=== PATIENT | male | born 1990 | race Caucasian/White ===

== ENCOUNTER 2021-02-21 04:58 | Inpatient (IN) | payer OTHER ==
[2021-02-21] MEDS ORDERED: SODIUM CHLORIDE 0.9% 1,000 ML IV STA (05:05)
[2021-02-21] MEDS ORDERED: MORPHINE SULFATE 4 MG/ML SYRINGE IV STA (05:05)
--- NOTE | 2021-02-21 05:05 | ED ---
Abdominal Pain HPI - General Stated Complaint: Abd Pain Time Seen by Provider: 02/21/21 05:04 - Related Data Allergies Allergy/AdvReac Type Severity Reaction Status Date / Time Penicillins Allergy Unknown Anaphylaxis Verified 02/21/21 06:43 Review of Systems ROS Statement: Those systems with pertinent positive or pertinent negative responses have been documented in the HPI. ROS Other: All systems not noted in ROS Statement are negative. Course Vital Signs 02/21/21 05:06 Temperature 98.6 F Pulse Rate 81 Respiratory 18 Rate Blood Pressure 168/117 O2 Sat by Pulse 99 Oximetry Medical Decision Making - Lab Data Result diagrams: 02/21/21 05:35 02/21/21 05:35 Lab Results 02/21/21 02/21/21 Range/Units 05:35 05:35 WBC 9.9 (3.8-10.6) k/uL RBC 4.42 (4.30-5.90) m/uL Hgb 15.5 (13.0-17.5) gm/dL Hct 45.9 (39.0-53.0) % MCV 103.8 H (80.0-100.0) fL MCH 35.1 H (25.0-35.0) pg MCHC 33.8 (31.0-37.0) g/dL RDW 13.4 (11.5-15.5) % Plt Count 122 L (150-450) k/uL MPV 9.9 Neutrophils % 74 % Lymphocytes % 18 % Monocytes % 4 % Eosinophils % 3 % Basophils % 0 % Neutrophils # 7.3 (1.3-7.7) k/uL Lymphocytes # 1.8 (1.0-4.8) k/uL Monocytes # 0.4 (0-1.0) k/uL Eosinophils # 0.3 (0-0.7) k/uL Basophils # 0.0 (0-0.2) k/uL Macrocytosis Slight Sodium 134 L (137-145) mmol/L Potassium 3.6 (3.5-5.1) mmol/L Chloride 97 L (98-107) mmol/L Carbon Dioxide 28 (22-30) mmol/L Anion Gap 9 mmol/L BUN 10 (9-20) mg/dL Creatinine 0.71 (0.66-1.25) mg/dL Est GFR (CKD-EPI)AfAm >90 (>60 ml/min/1.73 sqM) Est GFR (CKD-EPI)NonAf >90 (>60 ml/min/1.73 sqM) Glucose 82 (74-99) mg/dL Calcium 9.2 (8.4-10.2) mg/dL Phosphorus 3.8 (2.5-4.5) mg/dL Magnesium 1.9 (1.6-2.3) mg/dL Total Bilirubin 0.8 (0.2-1.3) mg/dL AST 33 (17-59) U/L ALT 17 (4-49) U/L Alkaline Phosphatase 74 (38-126) U/L Total Protein 7.4 (6.3-8.2) g/dL Albumin 4.0 (3.5-5.0) g/dL Amylase 210 H (30-110) U/L Lipase 2767 H (23-300) U/L Serum Alcohol <10 mg/dL Disposition Clinical Impression: Pancreatitis, Abdominal pain, Acute pancreatitis, Alcohol dependence Disposition: ADMITTED IP TO THIS HOSP Condition: Fair Is patient prescribed a controlled substance at d/c from ED?: No Referrals: None,Stated [Primary Care Provider] - 1-2 days
[2021-02-21] MEDS ORDERED: LORazepam 2 MG/ML INJ IV STA (05:22)
[2021-02-21 05:52] LABS: Basophils % (A) 0 %; Eosinophils # (A) 0.3 k/uL (0-0.7); Eosinophils % (A) 3 %; HCT 45.9 % (39.0-53.0); HGB 15.5 gm/dL (13.0-17.5); Lymphocytes # (A) 1.8 k/uL (1.0-4.8); Lymphocytes % (A) 18 %; MCH 35.1 pg (25.0-35.0); MCHC 33.8 g/dL (31.0-37.0); MCV 103.8 fL (80.0-100.0); Macrocytosis Slight; Mean Platelet Volume 9.9; Monocytes # (A) 0.4 k/uL (0-1.0); Monocytes % (A) 4 %; Neutrophils # (A) 7.3 k/uL (1.3-7.7); Neutrophils % (A) 74 %; Platelet Count 122 k/uL (150-450); RBC 4.42 m/uL (4.30-5.90); RDW 13.4 % (11.5-15.5); WBC 9.9 k/uL (3.8-10.6)
[2021-02-21 06:03] LABS: ALT 17 U/L (4-49); African American GFR (CKD) >90 (>60 ml/min/1.73 sqM); Alcohol <10 mg/dL; Amylase 210 U/L (30-110); Anion Gap 9 mmol/L; Blood Urea Nitrogen 10 mg/dL (9-20); Calcium 9.2 mg/dL (8.4-10.2); Carbon Dioxide 28 mmol/L (22-30); Chloride 97 mmol/L (98-107); Glucose 82 mg/dL (74-99); Non-African American GFR(CKD) >90 (>60 ml/min/1.73 sqM); Sodium 134 mmol/L (137-145); Total Bilirubin 0.8 mg/dL (0.2-1.3); Total Protein 7.4 g/dL (6.3-8.2)
[2021-02-21 06:52] LABS: AST 33 U/L (17-59); Magnesium 1.9 mg/dL (1.6-2.3); Phosphorus 3.8 mg/dL (2.5-4.5); Potassium 3.6 mmol/L (3.5-5.1)
[2021-02-21 06:53] LABS: Alkaline Phosphatase 74 U/L (38-126); Lipase 2767 U/L (23-300)
[2021-02-21] MEDS ORDERED: NALOXONE 0.4 MG/ML 1 ML VIAL IV PRN (06:55)
[2021-02-21] MEDS ORDERED: ONDANSETRON 4 MG/2 ML VIAL IVP PRN (06:55)
[2021-02-21] MEDS ORDERED: LORazepam 2 MG/ML INJ IV PRN ×3 (06:55→06:56)
[2021-02-21] MEDS ORDERED: THIAMINE 100 MG/ML 2 ML VIAL IM STA (06:56)
[2021-02-21] MEDS ORDERED: DEXTROSE 5%-0.45% NACL 1,000 ML IV SCH (07:00)
[2021-02-21] MEDS: MORPHINE SULFATE 4 MG/ML SYRINGE IV PRN ×2 (07:34→12:25)
--- NOTE | 2021-02-21 08:49 | US ---
EXAMINATION TYPE: US gallbladder DATE OF EXAM: 02/21/2021 COMPARISON: CT today. CLINICAL HISTORY: pain. Abdominal pain. Hx pancreatitis, gallstones. EXAM MEASUREMENTS: Liver Length: 15.8 cm Gallbladder Wall: 0.21 cm CBD: 1.10 cm Right Kidney: 11.4 x 6.2 x 4.5 cm Limited due to gas. Pancreas: Appears hyperechoic and heterogeneous. Duct measures 0.35 cm. Limited visibility of tail. Liver: Appears coarse with increased echogenicity. Hypoechoic, indistinct area seen adjacent to the gallbladder: 4.3 x 2.6 x 1.5 cm. Gallbladder: Internal echoes seen within. No shadowing mobile gallstones. Measures 8.5 cm in length and 3.3 cm in width. Evidence for sonographic Drake's sign: No. CBD: Appears dilated. Right Kidney: Hyperechoic area seen, could resemble vascular calcification versus other: 0.4 x 0.4 x 0.4 cm. Pyramids appear prominent. Visualized pancreas is slightly heterogeneous with mild ductal dilatation. Visualized liver is hetero geneously hyperechoic. No intrahepatic biliary dilatation. Gallbladder has distended margins without intraluminal shadowing mobile gallstones, abnormal wall thickening, or surrounding fluid. Cannot excl ude small amount of internal sludge. Sonographic Drake's sign is negative. Mild to moderate extrahep atic biliary dilatation. No right-sided hydronephrosis. IMPRESSION: Heterogeneous hyperechoic appearance of liver consistent with diffuse fatty infiltration and/or underlying hepatocellular disease. Heterogeneous prominence of pancreas could reflect product of acute pancreatitis. Minimal pancreatic ductal dilatation and mild to moderate extrahepatic biliary ductal dilatation. Findings correlate with same day CT. No obvious obstructing ampullary lesion. 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 Perhaps limited internal gallbladder sludge without secondary ultraso und evidence for acute cholecystitis.
--- NOTE | 2021-02-21 08:53 | CT ---
EXAMINATION TYPE: CT abdomen pelvis w con DATE OF EXAM: 02/21/2021 COMPARISON: Same day ultrasound HISTORY: Abdominal and epigastric pain, alcohol withdrawal, history of pancreatitis. CT DLP: 568 mGycm, Automated Exposure Control for Dose Reduction was Utilized. CONTRAST: CT scan of the abdomen and pelvis is performed without oral but with IV Contrast, patient injected wi th 100 ml mL of Isovue 300. FINDINGS: LUNG BASES: No significant abnormality is appreciated. LIVER/GB: Visualized liver is heterogeneously hypodense suggesting diffuse fatty infiltration and/or underlying hepatocellular disease. Gallbladder has distended margins without surrounding fat strandin g. Common bile duct measures up to 11 mm towards the agustin hepatis with some abnormal dilatation but slight tapering towards the duodenal ampulla. PANCREAS: Pancreas is overall slightly heterogeneous with mild surrounding fluid. Pancreatic duct is mildly prominent at 3 to 4 mm. Double duct sign towards the ampulla without obvious obstructing mass. No areas of nonenhancement or necrosis. No well-formed fluid collection or pseudocyst. SPLEEN: No significant abnormality is seen. ADRENALS: No significant abnormality is seen. KIDNEYS: No significant abnormality is seen. BOWEL: No significant abnormality is seen. PROSTATE/SEMINAL VESICLES: No gross abnormality seen. LYMPH NODES: No greater than 1cm abdominal or pelvic lymph nodes are appreciated. OSSEOUS STRUCTURES: Mild to moderate narrowing L1-L2 level. OTHER: Moderate amount of free fluid in the pelvic cul-de-sac. IMPRESSION: Suspect acute pancreatitis with mild diffuse heterogeneous prominence of pancreas and mil d diffuse surrounding fat stranding and fluid. No areas of necrosis or well-formed fluid collections identified. Underlying hepatocellular disease and/or fatty infiltration of liver with mild to moderat e extrahepatic biliary dilatation. No obvious obstructing mass or calculus. Consider ERCP follow-up.
[2021-02-21] MEDS: SODIUM CHLORIDE 0.9% 1,000 ML IV SCH ×2 (10:25→16:25)
[2021-02-21] MEDS: LORazepam 2 MG/ML INJ IV PRN (12:58)
[2021-02-21] MEDS: lisinopriL 5 MG TAB PO SCH (12:58)
--- NOTE | 2021-02-21 13:03 | P.GSCN ---
History of Present Illness Consult date: 02/21/21 History of present illness: CHIEF COMPLAINT: Acute pancreatitis HISTORY OF PRESENT ILLNESS: The patient is a 30-year-old male admitted for acute pancreatitis. He reports history of gallstones and family history of gallbladder disorder. He reports prior history of pancreatitis. He reports band like upper abdominal pain moderate to severe worse along the right side. General surgery is consulted for pancreatitis. ROS: No fevers or chills. No shortness of breath PHYSICAL EXAM: VITAL SIGNS: Reviewed CONSTITUTIONAL: Well developed and in no acute distress. EYES: Conjuctivae without sclera icterus. Extraocular movements grossly intact. HEAD, EARS, NOSE, THROAT: Moist buccal mucosa. Head is atraumatic, normocephalic. Hears conversational speech. No nasal drainage. NECK: Supple. No thyroidomegaly. RESPIRATORY: Non-labored respirations and equal bilateral excursions. CARDIOVASCULAR: Palpable 2+ radial pulses. ABDOMEN: Tender epigastrium. MUSCULOSKELETAL: No gross deformity of the lower extremities noted. No clubbing. No cyanosis. SKIN: Good skin turgor. Well perfused. NEUROLOGIC: Cranial nerves I through XII grossly intact. No focal or l ateralizing signs. PSYCH: Appropriate affect. Alert and oriented to person, place and time. CLINICAL LABS: Reviewed. Lipase over 2500 STUDIES: CT of the abdomen and pelvis independently reviewed. US gallbladder independently reviewed with gallstones. ASSESSMENT: 1. Gallstones pancreatitis. PLAN: 1. IV fluid hydration 2. May have ice chips 3. Non-narcotic schedule pain management started 4. Benefits and risk of robotic cholecystectomy reviewed. 5. Repeat CBC and CMP tomorrow Past Medical History Past Medical History: Hypertension Additional Past Medical History / Comment(s): Pancreatitis, Gallstones History of Any Multi-Drug Resistant Organisms: None Reported Additional Past Surgical History / Comment(s): Left eye surgery Past Anesthesia/Blood Transfusion Reactions: No Reported Reaction Past Psychological History: ADD/ADHD, Anxiety, Bipolar, PTSD Smoking Status: Current every day smoker Past Alcohol Use History: Abuse, Daily Past Drug Use History: Heroin, IV Drug Use - Past Family History Sister(s) Family Medical History: Hypertension Medications and Allergies Home Medications Medication Instructions Recorded Confirmed Type Acetaminophen Tab [Tylenol] 650 mg PO Q4H PRN 02/21/21 02/21/21 History LORazepam [Ativan] 1 - 2 mg PO Q4H PRN 02/21/21 02/21/21 History Mirtazapine [Remeron] 30 mg PO HS 02/21/21 02/21/21 History Pantoprazole [Protonix] 40 mg PO BID 02/21/21 02/21/21 History Propranolol [Inderal] 10 mg PO BID PRN 02/21/21 02/21/21 History lisinopriL [Zestril] 5 mg PO DAILY 02/21/21 02/21/21 History Allergies Allergy/AdvReac Type Severity Reaction Status Date / Time Penicillins Allergy Unknown Anaphylaxis Verified 02/21/21 08:11 Surgical - Exam Vital Signs Temp Pulse Resp BP Pulse Ox 98.6 F 81 18 168/117 99 02/21/21 05:06 02/21/21 05:06 02/21/21 05:06 02/21/21 05:06 02/21/21 05:06 Results - Labs 02/21/21 05:35 02/21/21 05:35 Abnormal Lab Results - Last 24 Hours (Table) 02/21/21 02/21/21 Range/Units 05:35 05:35 MCV 103.8 H (80.0-100.0) fL MCH 35.1 H (25.0-35.0) pg Plt Count 122 L (150-450) k/uL Sodium 134 L (137-145) mmol/L Chloride 97 L (98-107) mmol/L Amylase 210 H (30-110) U/L Lipase 2767 H (23-300) U/L Diabetes panel 02/21/21 Range/Units 05:35 Sodium 134 L (137-145) mmol/L Potassium 3.6 (3.5-5.1) mmol/L Chloride 97 L (98-107) mmol/L Carbon Dioxide 28 (22-30) mmol/L BUN 10 (9-20) mg/dL Creatinine 0.71 (0.66-1.25) mg/dL Glucose 82 (74-99) mg/dL Calcium 9.2 (8.4-10.2) mg/dL AST 33 (17-59) U/L ALT 17 (4-49) U/L Alkaline Phosphatase 74 (38-126) U/L Total Protein 7.4 (6.3-8.2) g/dL Albumin 4.0 (3.5-5.0) g/dL Calcium panel 02/21/21 Range/Units 05:35 Calcium 9.2 (8.4-10.2) mg/dL Phosphorus 3.8 (2.5-4.5) mg/dL Albumin 4.0 (3.5-5.0) g/dL Pituitary panel 02/21/21 Range/Units 05:35 Sodium 134 L (137-145) mmol/L Potassium 3.6 (3.5-5.1) mmol/L Chloride 97 L (98-107) mmol/L Carbon Dioxide 28 (22-30) mmol/L BUN 10 (9-20) mg/dL Creatinine 0.71 (0.66-1.25) mg/dL Glucose 82 (74-99) mg/dL Calcium 9.2 (8.4-10.2) mg/dL Adrenal panel 02/21/21 Range/Units 05:35 Sodium 134 L (137-145) mmol/L Potassium 3.6 (3.5-5.1) mmol/L Chloride 97 L (98-107) mmol/L Carbon Dioxide 28 (22-30) mmol/L BUN 10 (9-20) mg/dL Creatinine 0.71 (0.66-1.25) mg/dL Glucose 82 (74-99) mg/dL Calcium 9.2 (8.4-10.2) mg/dL Total Bilirubin 0.8 (0.2-1.3) mg/dL AST 33 (17-59) U/L ALT 17 (4-49) U/L Alkaline Phosphatase 74 (38-126) U/L Total Protein 7.4 (6.3-8.2) g/dL Albumin 4.0 (3.5-5.0) g/dL Assessment and Plan (1) Gallstone pancreatitis Current Visit: Yes Status: Acute Code(s): K85.10 - BILIARY ACUTE PANCREATITIS WITHOUT NECROSIS OR INFECTION SNOMED Code(s): 28425989 (2) Acute pancreatitis Current Visit: Yes Status: Acute Code(s): K85.90 - ACUTE PANCREATITIS WITHOUT NECROSIS OR INFECTION, UNSP SNOMED Code(s): 225420922
[2021-02-21] MEDS ORDERED: NICOTINE GUM (POLACRILEX) 2 MG GUM BUCCAL PRN (13:14)
[2021-02-21] MEDS ORDERED: ACETAMINOPHEN TAB 325 MG TAB PO PRN (15:02)
[2021-02-21] MEDS: NICOTINE 21MG/24HR PATCH TRANSDERM SCH (15:07)
[2021-02-21] MEDS: ACETAMINOPHEN IV (For NPO) 1,000 MG in EMPTY BAG 1 BAG IVPB SCH ×2 (15:07→20:32)
[2021-02-21] MEDS: KETOROLAC 30 MG/ML 1 ML VIAL IVP SCH ×2 (15:07→20:34)
[2021-02-21] MEDS: PROPRANOLOL 10 MG TAB PO SCH ×2 (15:08→20:34)
--- NOTE | 2021-02-21 15:09 | P.HPIM ---
History of Present Illness H&P Date: 02/21/21 Chief Complaint: abdominal pain Patient is a 30 yo CM with a hx of pancreatitis, gallstones, prior heroin use and alcohol abuse who prestented to the hospital from [place] for abdominal pain. On arrival to the ER he was hypertensive with blood pressure 168/117. Laboratory analysis showed an elevated lipase. Normal bilirubin, AST, and ALT. He underwent CT abd and pelvis which showed acute pancreatitis with prominence of the pancreas, mild fat stranding, underlying hepatocellular disease with moderate extra hepatic biliary dilatation. He also underwent liver ultrasound which again showed diffuse fatty infiltration with minimal pancreatic duct dilatation and moderate extrahepatic duct dilatation, no obvious obstructing ampullary lesions, internal gallbladder sludge without evidence of acute cholecystitis. He was started on IV fluids and arrangements were made for admission. Surgery was consulted. They recommended cholecystectomy. Patient seen and examined at bedside. C/o abdominal pain that is epigastric with some radiation to the right lower quandrant. Initially felt like constipation but then developed nausea and vomting of liquids.s been increasing with detox but used alcohol to blunt the pain in the past. Hx of pancreatitis in the past 7-8 times. Hx of gallstones. + chills, no fevers. + shortness of breath and cough. + pain with deep ins piration. Went to [place] 2 days ago for ETOH detox. Hx of heroin in the past 5-6 years ago. Pertinent positives and negatives as discussed in HPI, a complete review of systems was performed and all other systems are negative. General: non toxic, no distress, appears at stated age Derm: warm, dry, multiple tattoos Head: atraumatic, normocephalic, symmetric Eyes: EOMI, no lid lag, anicteric sclera, pupils equal round reactive to light ENT: Nose and ears atraumatic, + thrush, no pharyngeal erythema Neck: No thyromegaly, no cervical lymphadenopathy, trachea midline, supple Mouth: no lip lesion, mucus membranes moist Cardiovascular: S1S2 reg, no murmur, positive posterior tibial pulse bilateral, no edema, capillary refill less than 2 seconds Lungs: clear to ascultation bilateral, no ronchi, no rales, no wheeze, no accessory muscle use Abdominal: soft, tender to palpation epigastric, + guarding, no appreciable organomegaly, normal bowel sounds Ext: no gross muscle atrophy, muscle strength muscle strength 5 out of 5 in all 4 extremities, no contractures Neuro: CN II-XI grossly intact, light touch intact all 4 extremities, finger to nose within normal limits, Psych: Alert, oriented, appropriate affect Acute gallstone pancreatitis -IV fluids -Pain medications -Nothing by mouth except ice chips -Surgery recommendations: Plan for robotic cholecystectomy Thrush -Nystatin swish and spit -Check HIV Suspect component of liver disease secondary to alcoholism -Outpatient follow-up Alcohol abuse -CIWA -Thiamine -Folic acid The patient is admitted with an anticipated greater than 2 midnight stay for evaluation of pancreatitis CODE STATUS: Full DVT prophylaxis: Lovenox Discussed with: Patient, nursing Anticipated discharge date: 3-[address]: Return to [facility] A total of 65 minutes was spent on the care of this complex patient more than 50% of the time was spent in counseling and care coordination. Past Medical History Past Medical History: Hypertension Additional Past Medical History / Comment(s): Pancreatitis, Gallstones History of Any Multi-Drug Resistant Organisms: None Reported Additional Past Surgical History / Comment(s): Left eye surgery Past Anesthesia/Blood Transfusion Reactions: No Reported Reaction Past Psychological History: ADD/ADHD, Anxiety, Bipolar, PTSD Smoking Status: Current every day smoker Past Alcohol Use History: Abuse, Daily Past Drug Use History: Heroin, IV Drug Use - Past Family History Sister(s) Family Medical History: Hypertension Medications and Allergies Home Medications Medication Instructions Recorded Confirmed Type Acetaminophen Tab [Tylenol] 650 mg PO Q4H PRN 02/21/21 02/21/21 History LORazepam [Ativan] 1 - 2 mg PO Q4H PRN 02/21/21 02/21/21 History Mirtazapine [Remeron] 30 mg PO HS 02/21/21 02/21/21 History Pantoprazole [Protonix] 40 mg PO BID 02/21/21 02/21/21 History Propranolol [Inderal] 10 mg PO BID PRN 02/21/21 02/21/21 History lisinopriL [Zestril] 5 mg PO DAILY 02/21/21 02/21/21 History Allergies Allergy/AdvReac Type Severity Reaction Status Date / Time Penicillins Allergy Unknown Anaphylaxis Verified 02/21/21 08:11 Physical Exam Osteopathic Statement: *. No significant issues noted on an osteopathic structural exam other than those noted in the History and Physical/Consult. Vitals: Vital Signs Temp Pulse Pulse Resp BP BP Pulse Ox 02/21/21 12:08 98.2 F 61 20 192/105 99 02/21/21 10:17 70 18 148/97 98 02/21/21 05:06 98.6 F 81 18 168/117 99 Intake and Output 02/21/21 02/21/21 02/21/21 06:59 14:59 22:59 Other: Weight 58.967 kg 58.967 kg Results CBC & Chem 7: 02/21/21 05:35 02/21/21 05:35 Labs: Abnormal Lab Results - Last 24 Hours (Table) 02/21/21 02/21/21 Range/Units 05:35 05:35 MCV 103.8 H (80.0-100.0) fL MCH 35.1 H (25.0-35.0) pg Plt Count 122 L (150-450) k/uL Sodium 134 L (137-145) mmol/L Chloride 97 L (98-107) mmol/L Amylase 210 H (30-110) U/L Lipase 2767 H (23-300) U/L Thrombosis Risk Factor Assmnt - Choose All That Apply Any of the Below Risk Factors Present?: No Other Risk Factors: No Other congenital or acquired thrombophilia - If yes, enter type in comment: No Thrombosis Risk Factor Assessment Level: Very Low Risk
[2021-02-21] MEDS: LEVOFLOXACIN 500MG-D5W PMX 500 MG in DEXTROSE/WATER 1 100ML.BAG IVPB SCH (16:16)
[2021-02-21] MEDS: HYDROmorphone 1 MG/ML 1 ML SYRINGE IVP PRN ×2 (16:16→20:33)
[2021-02-21] MEDS: LACTATED RINGERS 1,000 ML IV SCH ×2 (16:16→20:35)
[2021-02-21] MEDS: metroNIDAZOLE-NS PMX 500 MG in SALINE 1 100ML.BAG IVPB SCH (17:51)
[2021-02-21] MEDS: THIAMINE 100 MG TAB PO SCH (17:51)
[2021-02-21] MEDS: NYSTATIN 100,000 UNIT/ML SUSP 500,000 UNIT/5 ML CUP PO SCH ×2 (20:34→22:44)
[2021-02-22] MEDS: metroNIDAZOLE-NS PMX 500 MG in SALINE 1 100ML.BAG IVPB SCH ×4 (00:07→23:05)
[2021-02-22] MEDS: HYDROmorphone 1 MG/ML 1 ML SYRINGE IVP PRN ×5 (00:08→21:46)
[2021-02-22] MEDS: KETOROLAC 30 MG/ML 1 ML VIAL IVP SCH ×4 (04:05→23:05)
[2021-02-22] MEDS: ACETAMINOPHEN IV (For NPO) 1,000 MG in EMPTY BAG 1 BAG IVPB SCH ×2 (04:05→13:35)
[2021-02-22] MEDS: LACTATED RINGERS 1,000 ML IV SCH ×2 (04:06→09:25)
[2021-02-22] MEDS: ENOXAPARIN 40 MG/0.4 ML SYRINGE SQ SCH (08:02)
[2021-02-22] MEDS: lisinopriL 5 MG TAB PO SCH (08:02)
[2021-02-22] MEDS: NICOTINE 21MG/24HR PATCH TRANSDERM SCH (08:02)
[2021-02-22] MEDS: PROPRANOLOL 10 MG TAB PO SCH ×2 (08:02→20:22)
[2021-02-22] MEDS: NYSTATIN 100,000 UNIT/ML SUSP 500,000 UNIT/5 ML CUP PO SCH ×4 (08:09→20:22)
[2021-02-22] MEDS: LORazepam 2 MG/ML INJ IV PRN ×2 (08:39→16:16)
[2021-02-22] MEDS ORDERED: INDOCYANINE GREEN 25 MG VIAL IV STA (08:55)
[2021-02-22 09:29] LABS: Basophils # (A) 0.1 k/uL (0-0.2); Basophils % (A) 1 %; Eosinophils # (A) 0.2 k/uL (0-0.7); Eosinophils % (A) 2 %; HCT 49.4 % (39.0-53.0); HGB 16.9 gm/dL (13.0-17.5); Lymphocytes # (A) 1.6 k/uL (1.0-4.8); Lymphocytes % (A) 19 %; MCH 35.8 pg (25.0-35.0); MCHC 34.1 g/dL (31.0-37.0); Macrocytosis Slight; Mean Platelet Volume 11.7; Monocytes # (A) 0.4 k/uL (0-1.0); Monocytes % (A) 5 %; Neutrophils % (A) 71 %; Platelet Count 100 k/uL (150-450); RDW 13.3 % (11.5-15.5); WBC 8.4 k/uL (3.8-10.6)
[2021-02-22] MEDS ORDERED: BUPIVACAIN-EPI 0.25%-1:200,000 30 ML VIAL SQ ONE (09:52)
[2021-02-22] MEDS ORDERED: IV FLUID CONTINUATION 800 ML IV ONE (09:53)
[2021-02-22 09:58] LABS: ALT 14 U/L (4-49); AST 33 U/L (17-59); African American GFR (CKD) >90 (>60 ml/min/1.73 sqM); Albumin/Globulin Ratio 1.2; Alkaline Phosphatase 84 U/L (38-126); Anion Gap 11 mmol/L; Blood Urea Nitrogen 6 mg/dL (9-20); Calcium 9.4 mg/dL (8.4-10.2); Carbon Dioxide 23 mmol/L (22-30); Chloride 101 mmol/L (98-107); Globulin 3.3 g/dL; Lipase 416 U/L (23-300); Magnesium 1.9 mg/dL (1.6-2.3); Non-African American GFR(CKD) >90 (>60 ml/min/1.73 sqM); Phosphorus 3.7 mg/dL (2.5-4.5); Sodium 135 mmol/L (137-145); Total Bilirubin 0.6 mg/dL (0.2-1.3); Total Protein 7.3 g/dL (6.3-8.2)
[2021-02-22 10:03] LABS: Glucose 48 mg/dL (74-99)
[2021-02-22] MEDS ORDERED: DEXTROSE 50% SYRINGE 50 ML IVP ONE ×2 (10:30→10:35)
--- NOTE | 2021-02-22 10:35 | P.PN ---
Subjective Progress Note Date: 02/22/21 CHIEF COMPLAINT: Acute pancreatitis HISTORY OF PRESENT ILLNESS: The patient is a 30-year-old male admitted for acute pancreatitis. Ultrasound consistent with gallstones. I was notified by the patient's nurse for DTs. I personally assessed the patient. He denies any current symptoms. ROS: No fevers or chills. No shortness of breath PHYSICAL EXAM: VITAL SIGNS: Reviewed CONSTITUTIONAL: Well developed and in no acute distress. EYES: Conjuctivae without sclera icterus. Extraocular movements grossly intact. HEAD, EARS, NOSE, THROAT: Moist buccal mucosa. Head is atraumatic, normocephalic. Hears conversational speech. No nasal drainage. NECK: Supple. No thyroidomegaly. RESPIRATORY: Non-labored respirations and equal bilateral excursions. CARDIOVASCULAR: Palpable 2+ radial pulses. ABDOMEN: Tender epigastrium. MUSCULOSKELETAL: No gross deformity of the lower extremities noted. No clubbing. No cyanosis. No tremors. SKIN: Good skin turgor. Well perfused. NEUROLOGIC: Cranial nerves II through XII grossly intact. No focal or lateralizing signs. PSYCH: Appropriate affect. Alert and oriented to person, place and time. CLINICAL LABS: Reviewed. Lipase over 2500 now down to over 400. ASSESSMENT: 1. Gallstones pancreatitis. PLAN: 1. Robotic cholecystectomy described for gallstone pancreatitis Objective - Vital Signs Vital signs: Vital Signs Temp 97.7 F 02/22/21 09:55 Pulse 74 02/22/21 09:55 Resp 20 02/22/21 09:55 BP 183/105 02/22/21 09:55 Pulse Ox 99 02/22/21 09:55 Intake & Output 02/21/21 02/22/21 02/22/21 18:59 06:59 18:59 Intake Total 0 Balance 0 Weight 58.967 kg Intake: Oral 0 Other: Voiding Method Toilet - Labs CBC & Chem 7: 02/22/21 07:48 02/22/21 07:48 Labs: Abnormal Lab Results - Last 24 Hours (Table) 02/22/21 02/22/21 Range/Units 07:48 07:48 MCV 105.0 H (80.0-100.0) fL MCH 35.8 H (25.0-35.0) pg Plt Count 100 L (150-450) k/uL Sodium 135 L (137-145) mmol/L BUN 6 L (9-20) mg/dL Creatinine 0.60 L (0.66-1.25) mg/dL Glucose 48 L* (74-99) mg/dL Lipase 416 H (23-300) U/L Assessment and Plan (1) Gallstone pancreatitis Current Visit: Yes Status: Acute Code(s): K85.10 - BILIARY ACUTE PANCREATITIS WITHOUT NECROSIS OR INFECTION SNOMED Code(s): 01560435 (2) Acute pancreatitis Current Visit: Yes Status: Acute Code(s): K85.90 - ACUTE PANCREATITIS WITH OUT NECROSIS OR INFECTION, UNSP SNOMED Code(s): 027138093
[2021-02-22 10:40] LABS: Glucose,Whole Blood 51 mg/dL (75-99)
[2021-02-22] MEDS ORDERED: ONDANSETRON 4 MG/2 ML VIAL IVP ONE (10:40)
[2021-02-22] MEDS ORDERED: fentaNYL (PF) 50 MCG/ML 2 ML AMP ONE (10:58)
[2021-02-22] MEDS ORDERED: PROPOFOL 10 MG/ML 20 ML VIAL IV ONE (10:58)
[2021-02-22] MEDS ORDERED: SUCCINYLCHOLINE CHLORIDE 100 MG/5 ML SYR IV ONE (10:58)
[2021-02-22] MEDS ORDERED: INDOCYANINE GREEN 25 MG VIAL IV ONE (10:58)
[2021-02-22] MEDS ORDERED: LIDOCAINE 1% INJ 10MG/ML (20 ML MDV) ONE (10:58)
[2021-02-22] MEDS ORDERED: GLYCOPYRROLATE 0.2 MG/ML 2 ML VIAL ONE (10:58)
[2021-02-22] MEDS ORDERED: MIDAZOLAM 2 MG/2 ML VIAL ONE (10:58)
[2021-02-22] MEDS ORDERED: NEOSTIGMINE 1 MG/ML 10 ML VIAL ONE (10:58)
[2021-02-22] MEDS ORDERED: ROCURONIUM 10 MG/ML (5 ML VIAL) IV ONE (10:58)
[2021-02-22 10:59] LABS: Glucose,Whole Blood 202 mg/dL (75-99)
[2021-02-22] MEDS ORDERED: LACTATED RINGERS 1,000 ML IV ONE (12:05)
[2021-02-22] MEDS ORDERED: ACETAMINOPHEN IV (For NPO) 1,000 MG in EMPTY BAG 1 BAG IVPB ONE (12:14)
--- NOTE | 2021-02-22 12:19 | P.OP ---
Date of Procedure: 02/22/21 Description of Procedure: SURGEON: ANDIE TODD MD PREOPERATIVE DIAGNOSES: 1. Gallstone pancreatitis 2. History of alcohol abuse POSTOPERATIVE DIAGNOSES: 1. Gallstone pancreatitis 2. History of alcohol abuse OPERATION: Robotic-assisted da Jovi Xi laparoscopic cholecystectomy, multiport with FIREFLY ESTIMATED BLOOD LOSS: 10 mL. SPECIMENS REMOVED: Gallbladder. COMPLICATIONS: None. OPERATIVE FINDINGS: 1. Chronic cholecystitis identified. 2. Liver within normal limits. INDICATIONS: The patient is a 30-year-old male who presents with gallstone pancreatitis. Robotic assisted laparoscopic approach was described. Benefits and risks of the procedure including but not limited to bleeding, infection, injury to the biliary tree was described. Informed consent was obtained. DESCRIPTION OF PROCEDURE: Patient was brought to the operating room, placed in supine position. After general induction, the abdomen had been prepped and draped in standard sterile fashion. The robotic da Jovi XI system was primed. After a timeout protocol was performed, the patient had been prepped and draped in standard sterile fashion. The patient was injected with indocyanine green. A 5 mm 0 degrees laparoscopic trocar entry was performed along the left upper quadrant. The abdomen insufflated to 15 mmHg pressure which was tolerated well. Diagnostic laparoscopy demonstrated no injury to bowel viscera or mesentery. The liver surface was unremarkable. Next, two 8 mm robotic ports were placed along the right upper abdomen. The camera 8-mm port was maintained along the epigastrium. Another 8 mm port was placed along the left upper abdominal wall after exchanging the 5 mm port. Please note that the ports were placed at least 10 to 15 cm away from the target anatomy of the gallbladder. The robot was docked along the left lateral abdomen. The patient was repositioned in reverse Trendelenburg position. Using a grasper for arm 3, a grasper for arm 4, including hook cautery for arm 1, the robotic system was docked and primed as described. Instruments were interchanged by the senior office support assistant sosa including hook cautery, Bovie cautery and clip appliers. I had sat at the console. Next attention was brought to the infundibulum and cystic structures. The infundibulum and cystic duct were dissected free from surrounding tissues. The cystic duct was isolated. FIREFLY was used to identify the cystic artery and cystic structures. A critical view of safety was obtained. Large PLASTIC clips were used throughout the entire case. Using a clip methods and procedures analyst, 2 clips were placed at the junction of the infundibulum and cystic duct. The cystic duct was divided between clips. Next, the cystic artery was similarly clipped and cauterized. Electro-Bovie cautery was used to remove the gallbladder from the hepatic fossa. Hemostasis was checked and found to be adequate. The robot was undocked. I re-scrubbed into the case. Using a 10 mm Endo Catch bag via the left upper quadrant incision, the specimen was removed from the abdominal cavity. All pneumoperitoneum instruments were evacuated from the abdominal cavity. The incisions were reapproximated using 4-0 Monocryl in an interrupted subcuticular fashion. Fascial defects were less than 8 mm in size. Please note along the trocar sites, local anesthetic was placed as a field block prior to insertion of all instruments. Liquid glue was applied to the skin. At the end of the procedure needle, sponge, and instrument count had been verified correct by the surgical endoscopist. The patient was transferred to postanesthesia care unit in stable condition.
[2021-02-22 12:37] LABS: Glucose,Whole Blood 125 mg/dL (75-99)
[2021-02-22] MEDS ORDERED: HYDROmorphone 0.5 MG/0.5 ML SYRINGE IVP ONE ×2 (12:43→12:55)
[2021-02-22] MEDS ORDERED: LABETALOL SYRINGE 5 MG/ML IV ONE (12:55)
[2021-02-22 14:04] LABS: Glucose,Whole Blood 85 mg/dL (75-99)
--- NOTE | 2021-02-22 14:12 | P.PN ---
Subjective Progress Note Date: 02/22/21 CHIEF COMPLAINT: Acute pancreatitis HISTORY OF PRESENT ILLNESS: The patient is a 30-year-old male admitted for acute pancreatitis. He is status post cholecystectomy. He complains of appropriate soreness. He is tolerating liquids. ROS: No fevers or chills. No shortness of breath PHYSICAL EXAM: VITAL SIGNS: Reviewed CONSTITUTIONAL: Well developed and in no acute distress. EYES: Conjuctivae without sclera icterus. Extraocular movements grossly intact. HEAD, EARS, NOSE, THROAT: Moist buccal mucosa. Head is atraumatic, normocephalic. Hears conversational speech. No nasal drainage. NECK: Supple. No thyroidomegaly. RESPIRATORY: Non-labored respirations and equal bilateral excursions. CARDIOVASCULAR: Palpable 2+ radial pulses. ABDOMEN: Incisions intact MUSCULOSKELETAL: No gross deformity of the lower extremities noted. No clubbing. No cyanosis. No tremors. SKIN: Good skin turgor. Well perfused. NEUROLOGIC: Cranial nerves II through XII grossly intact. No focal or lateralizing signs. PSYCH: Appropriate affect. Alert and oriented to person, place and time. ASSESSMENT: 1. Gallstones pancreatitis. PLAN: 1. Continue non-narcotic pain management 2. [facility] protocol Objective - Vital Signs Vital signs: Vital Signs Temp 98.7 F 02/22/21 12:18 Pulse 62 02/22/21 13:56 Resp 16 02/22/21 13:56 BP 151/87 02/22/21 13:56 Pulse Ox 99 02/22/21 13:56 Intake & Output 02/21/21 02/22/21 02/22/21 18:59 06:59 18:59 Intake Total 0 1100 Output Total 5 Balance 0 1095 Weight 58.967 kg 58.967 kg Intake: IV 1100 Oral 0 Output: Estimated Blood Loss 5 Other: Voiding Method Toilet Toilet - Labs CBC & Chem 7: 02/22/21 07:48 02/22/21 07:48 Labs: Abnormal Lab Results - Last 24 Hours (Table) 02/22/21 02/22/21 02/22/21 Range/Units 07:48 07:48 10:21 MCV 105.0 H (80.0-100.0) fL MCH 35.8 H (25.0-35.0) pg Plt Count 100 L (150-450) k/uL Sodium 135 L (137-145) mmol/L BUN 6 L (9-20) mg/dL Creatinine 0.60 L (0.66-1.25) mg/dL Glucose 48 L* (74-99) mg/dL POC Glucose (mg/dL) 51 L (75-99) mg/dL Lipase 416 H (23-300) U/L 02/22/21 02/22/21 Range/Units 10:55 12:27 MCV (80.0-100.0) fL MCH (25.0-35.0) pg Plt Count (150-450) k/uL Sodium (137-145) mmol/L BUN (9-20) mg/dL Creatinine (0.66-1.25) mg/dL Glucose (74-99) mg/dL POC Glucose (mg/dL) 202 H 125 H (75-99) mg/dL Lipase (23-300) U/L Assessment and Plan (1) Gallstone pancreatitis Current Visit: Yes Status: Acute Code(s): K85.10 - BILIARY ACUTE PANCREATITIS WITHOUT NECROSIS OR INFECTION SNOMED Code(s): 14216913 (2) Acute pancreatitis Current Visit: Yes Status: Acute Code(s): K85.90 - ACUTE PANCREATITIS WITHOUT NECROSIS OR INFECTION, UNSP SNOMED Code(s): 303724510
[2021-02-22] MEDS: LEVOFLOXACIN 500MG-D5W PMX 500 MG in DEXTROSE/WATER 1 100ML.BAG IVPB SCH (15:32)
[2021-02-22] MEDS: THIAMINE 100 MG TAB PO SCH ×2 (15:38→16:40)
[2021-02-22 16:32] LABS: Glucose,Whole Blood 164 mg/dL (75-99)
[2021-02-22 16:53] LABS: HIV 2 AB Non-Reactive (Non-Reactive); HIV AB P24 Non-Reactive (Non-Reactive); HIV P24 AG Non-Reactive (Non-Reactive)
--- NOTE | 2021-02-22 17:17 | P.PN ---
Subjective Progress Note Date: 02/22/21 Principal diagnosis: abdominal pain Patient is a 30 yo CM with a hx of pancreatitis, gallstones, prior heroin use and alcohol abuse who prestented to the hospital from [place] for abdominal pain. On arrival to the ER he was hypertensive with blood pressure 168/117. Laboratory analysis showed an elevated lipase. Normal bilirubin, AST, and ALT. He underwent CT abd and pelvis which showed acute pancreatitis with prominence of the pancreas, mild fat stranding, underlying hepatocellular disease with moderate extra hepatic biliary dilatation. He also underwent liver ultrasound which again showed diffuse fatty infiltration with minimal pancreatic duct dilatation and moderate extrahepatic duct dilatation, no obvious obstructing ampullary lesions, internal gallbladder sludge without evidence of acute cholecystitis. He was started on IV fluids and arrangements were made for admission. Surgery was consulted. They recommended cholecystectomy which was performed on 02/22. He did have some hypoglycemia which responded to glucose administration. Patient seen and examined at bedside. He continues to have abdominal pain. He also complains of a bloated feeling with a gas bubble" under his rib cage on the right. He denies any nausea or vomiting. He tolerated Jell-O without increased pain. General: non toxic, no distress, appears at stated age Derm: warm, dry Head: atraumatic, normocephalic, symmetric Eyes: EOMI, no lid lag, anicteric sclera Mouth: no lip lesion, mucus membranes moist Cardiovascular: S1S2 reg, no murmur, positive posterior tibial pulse bilateral, Lungs: CTA bilateral, no rhonchi, no rales , no accessory muscle use Abdominal: soft, tender to palpation in all 4 quadrants, no guarding, no appreciable organomegaly Ext: no gross muscle atrophy, no edema, no contractures Neuro: CN II-XI grossly intact, no focal neuro deficits Psych: Alert, oriented, appropriate affect Acute gallstone pancreatitis s/p cholecystectomy -IV fluids -Pain medications -Nothing by mouth except ice chips -Surgery recommendations appreciated - toradol as needed for pain, dilaudid is likely to be ineffective Thrush -Nystatin swish and spit -HIV negative Hypoglycemia - start D5 0.45 as patient will be NPO. Suspect component of liver disease secondary to alcoholism -Outpatient follow-up Alcohol abuse -CIWA -Thiamine -Folic acid DVT prophylaxis: Lovenox Discussed with: Patient, nursing Anticipated discharge date: 3-[address]: Return to [place] A total of 35 minutes was spent on the care of this complex patient more than 50% of the time was spent in counseling and care coordination. Objective - Vital Signs Vital signs: Vital Signs Temp 98.7 F 02/22/21 12:18 Pulse 58 L 02/22/21 14:54 Resp 16 02/22/21 14:54 BP 162/90 02/22/21 14:54 Pulse Ox 99 02/22/21 14:54 Intake & Output 02/21/21 02/22/21 02/22/21 18:59 06:59 18:59 Intake Total 0 1638 Output Total 505 Balance 0 1133 Weight 58.967 kg 58.967 kg Intake: IV 1200 Levofloxacin 500Mg-D5w 100 Pmx 500 mg In Dextrose/ Water 1 100ml.bag @ 100 mls/hr IVPB Q24HR@1500 [facility] Rx#:[id number] Oral 0 438 Output: Urine 500 Estimated Blood Loss 5 Other: Voiding Method Toilet Toilet - Labs CBC & Chem 7: 02/22/21 07:48 02/22/21 07:48 Labs: Abnormal Lab Results - Last 24 Hours (Table) 02/22/21 02/22/21 02/22/21 Range/Units 07:48 07:48 10:21 MCV 105.0 H (80.0-100.0) fL MCH 35.8 H (25.0-35.0) pg Plt Count 100 L (150-450) k/uL Sodium 135 L (137-145) mmol/L BUN 6 L (9-20) mg/dL Creatinine 0.60 L (0.66-1.25) mg/dL Glucose 48 L* (74-99) mg/dL POC Glucose (mg/dL) 51 L (75-99) mg/dL Lipase 416 H (23-300) U/L 02/22/21 02/22/21 02/22/21 Range/Units 10:55 12:27 16:31 MCV (80.0-100.0) fL MCH (25.0-35.0) pg Plt Count (150-450) k/uL Sodium (137-145) mmol/L BUN (9-20) mg/dL Creatinine (0.66-1.25) mg/dL Glucose (74-99) mg/dL POC Glucose (mg/dL) 202 H 125 H 164 H (75-99) mg/dL Lipase (23-300) U/L
[2021-02-22] MEDS: DEXTROSE 5%-0.45% NACL 1,000 ML IV SCH (17:56)
[2021-02-22] MEDS: FAMOTIDINE 20 MG TAB PO SCH (20:22)
[2021-02-22 20:26] LABS: Glucose,Whole Blood 127 mg/dL (75-99)
[2021-02-22] MEDS: MIRTAZAPINE 15 MG TAB PO SCH (23:06)
[2021-02-23] MEDS: HYDROmorphone 1 MG/ML 1 ML SYRINGE IVP PRN ×8 (00:20→22:30)
[2021-02-23] MEDS: DEXTROSE 5%-0.45% NACL 1,000 ML IV SCH ×4 (04:24→23:52)
[2021-02-23] MEDS: KETOROLAC 30 MG/ML 1 ML VIAL IVP SCH ×4 (05:52→23:49)
[2021-02-23] MEDS: THIAMINE 100 MG TAB PO SCH ×2 (07:26→18:03)
[2021-02-23 07:32] LABS: Glucose,Whole Blood 99 mg/dL (75-99)
[2021-02-23] MEDS: metroNIDAZOLE-NS PMX 500 MG in SALINE 1 100ML.BAG IVPB SCH ×3 (08:00→23:49)
[2021-02-23] MEDS: FAMOTIDINE 20 MG TAB PO SCH ×2 (09:04→20:44)
[2021-02-23] MEDS: NYSTATIN 100,000 UNIT/ML SUSP 500,000 UNIT/5 ML CUP PO SCH ×4 (09:04→20:43)
[2021-02-23] MEDS: PROPRANOLOL 10 MG TAB PO SCH ×2 (09:04→20:44)
[2021-02-23] MEDS: PANTOPRAZOLE 40 MG/10 ML VIAL IV SCH (09:04)
[2021-02-23] MEDS: lisinopriL 5 MG TAB PO SCH (09:04)
[2021-02-23] MEDS: NICOTINE 21MG/24HR PATCH TRANSDERM SCH (09:12)
[2021-02-23] MEDS: ENOXAPARIN 40 MG/0.4 ML SYRINGE SQ SCH (09:12)
[2021-02-23 09:14] VITALS: RESP 18
--- NOTE | 2021-02-23 10:15 | XR ---
EXAMINATION TYPE: XR abdomen acute w cxr DATE OF EXAM: 02/23/2021 CLINICAL HISTORY: Pancreatitis. Pain after surgery. TECHNIQUE: Single frontal view of chest is obtained. Supine and upright views of the abdomen are acq uired. COMPARISON: CT abdomen and pelvis 2 days ago. FINDINGS: The lungs are grossly clear without pleural effusion or pneumothorax. Cardiac silhouette size appears within normal limits. Osseous structures are intact. Pneumoperitoneum consistent with recent intra-abdominal surgery. No abnormal small or large bowel dil atation. No suspicious calcification or visceromegaly is identified. The osseous structures are inta ct. IMPRESSION: 1. No acute pulmonary process. 2. Overall nonobstructive bowel gas pattern. Pneumoperitoneum consistent with interval intra-abdomina l surgery noted.
[2021-02-23] MEDS ORDERED: LACTULOSE 20 GM/30 ML CUP PO STA (11:06)
[2021-02-23] MEDS ORDERED: MAGNESIUM HYDROXIDE 2,400 MG/10 ML CUP PO STA (11:06)
--- NOTE | 2021-02-23 11:10 | P.PN ---
Subjective Progress Note Date: 02/23/21 CHIEF COMPLAINT: Acute pancreatitis HISTORY OF PRESENT ILLNESS: The patient is a 30-year-old male admitted for acute pancreatitis. He is status post cholecystectomy. He has appropriate soreness. He is not ambulating. ROS: No fevers or chills. No shortness of breath PHYSICAL EXAM: VITAL SIGNS: Reviewed CONSTITUTIONAL: Well developed and in no acute distress. EYES: Conjuctivae without sclera icterus. Extraocular movements grossly intact. HEAD, EARS, NOSE, THROAT: Moist buccal mucosa. Head is atraumatic, normocephalic. Hears conversational speech. No nasal drainage. NECK: Supple. No thyroidomegaly. RESPIRATORY: Non-labored respirations and equal bilateral excursions. CARDIOVASCULAR: Palpable 2+ radial pulses. ABDOMEN: Incisions intact. No peritonitis. Lower abdominal tenderness MUSCULOSKELETAL: No gross deformity of the lower extremities noted. No clubbing. No cyanosis. No tremors. SKIN: Good skin turgor. Well perfused. NEUROLOGIC: Cranial nerves II through XII grossly intact. No focal or lateralizing signs. PSYCH: Appropriate affect. Alert and oriented to person, place and time. LABS: Reviewed. STUDIES: Abdominal xray independently reviewed with expected post surgical air. Moderate stool. This is my independent interpretation. ASSESSMENT: 1. Gallstones pancreatitis. 2. History of alcoholism PLAN: 1. Simethicone 80 mg QID for gas 2. Low fat diet 3. Miralax and Lactulose for constipation 4. Continue hospitalization 5. Repeat Lipase, CMP Objective - Vital Signs Vital signs: Vital Signs Temp 98.6 F 02/23/21 08:00 Pulse 81 02/23/21 08:00 Resp 18 02/23/21 08:00 BP 185/104 02/23/21 08:00 Pulse Ox 98 02/23/21 08:00 Intake & Output 02/22/21 02/23/21 02/23/21 18:59 06:59 18:59 Intake Total 1638 Output Total 505 400 Balance 1133 -400 Weight 58.967 kg Intake: IV 1200 Levofloxacin 500Mg-D5w 100 Pmx 500 mg In Dextrose/ Water 1 100ml.bag @ 100 mls/hr IVPB Q24HR@1500 [facility] Rx#:[id number] Oral 438 Output: Urine 500 400 Estimated Blood Loss 5 Other: Voiding Method Toilet Toilet Urinal # Voids 2 1 # Bowel Movements 0 - Labs CBC & Chem 7: 02/22/21 07:48 02/22/21 07:48 Labs: Abnormal Lab Results - Last 24 Hours (Table) 02/22/21 02/22/21 02/22/21 Range/Units 12:27 16:31 20:24 POC Glucose (mg/dL) 125 H 164 H 127 H (75-99) mg/dL Assessment and Plan (1) Gallstone pancreatitis Current Visit: Yes Status: Acute Code(s): K85.10 - BILIARY ACUTE PANCREATITIS WITHOUT NECROSIS OR INFECTION SNOMED Code(s): 47607169 (2) Acute pancreatitis Current Visit: Yes Status: Acute Code(s): K85.90 - ACUTE PANCREATITIS WITHOUT NECROSIS OR INFECTION, UNSP SNOMED Code(s): 592307690
[2021-02-23] MEDS: SIMETHICONE 40 MG/0.6 ML DROPS 2,000 MG/30 ML BOTTLE PO SCH ×3 (11:12→20:44)
[2021-02-23 11:28] LABS: HCT 42.7 % (39.6-50.0); MCH 34.4 pg (27.0-32.0); MCHC 32.8 g/dL (32.0-37.0); MCV 104.9 fL (80.0-97.0); Mean Platelet Volume 12.3 fL (9.5-12.2); Platelet Count 87 X 10*3/uL (140-440); RBC 4.07 X 10*6/uL (4.40-5.60); RDW 12.9 % (11.5-14.5)
[2021-02-23 11:44] LABS: African American GFR (CKD) 144.7 (60.0-200.0); Albumin 3.8 g/dL (3.8-4.9); Albumin/Globulin Ratio 1.52 (1.60-3.17); Anion Gap 12.3 mmol/L (10.00-18.00); BUN/Creat Ratio 3.86 Ratio (12.00-20.00); Blood Urea Nitrogen 2.7 mg/dL (9.0-27.0); Calcium 8.8 mg/dL (8.7-10.3); Carbon Dioxide 23.7 mmol/L (20.0-27.5); Globulin 2.5 g/dL (1.6-3.3); Non-African American GFR(CKD) 124.9 (60.0-200.0); Potassium 3.9 mmol/L (3.5-5.5); Total Bilirubin 0.4 mg/dL (0.30-1.20); Total Protein 6.3 g/dL (6.2-8.2)
[2021-02-23] MEDS: ACETAMINOPHEN IV (For NPO) 1,000 MG in EMPTY BAG 1 BAG IVPB SCH ×3 (11:52→23:48)
[2021-02-23 12:21] LABS: Glucose,Whole Blood 86 mg/dL (75-99)
[2021-02-23] MEDS: LEVOFLOXACIN 500MG-D5W PMX 500 MG in DEXTROSE/WATER 1 100ML.BAG IVPB SCH (15:00)
--- NOTE | 2021-02-23 15:20 | P.PN ---
Subjective Progress Note Date: 02/23/21 (delayed charting seen at 0945) Principal diagnosis: abdominal pain Patient is a 30 yo CM with a hx of pancreatitis, gallstones, prior heroin use and alcohol abuse who prest[place] the hospital [place]. On arrival to the ER he was hypertensive with blood pressure 168/117. Laboratory analysis showed an elevated lipase. Normal bilirubin, AST, and ALT. He underwent CT abd and pelvis which showed acute pancreatitis with prominence of the pancreas, mild fat stranding, underlying hepatocellular disease with moderate extra hepatic biliary dilatation. He also underwent liver ultrasound which again showed diffuse fatty infiltration with minimal pancreatic duct dilatation and moderate extrahepatic duct dilatation, no obvious obstructing ampullary lesions, internal gallbladder sludge without evidence of acute cholecystitis. He was started on IV fluids and arrangements were made for admission. Surgery was consulted. They recommended cholecystectomy which was performed on 02/22. He did have some hypoglycemia which responded to glucose administration. Patient seen and examined at bedside. He complains of worsening abdominal pain from yesterday. He is unsure if it is postsurgical related to his pancreatitis however he does report feeling some hunger. He also reports he continues to have that bubblelike sensation under his diaphragm. He denies any nausea or vomiting. He does not want to discontinue the Dilaudid at this time but will try some IV Tylenol. We discussed what is important for him to get up and walk around to continue to move that he should not just lay in bed. General: non toxic, no distress, appears at stated age Derm: warm, dry Head: atraumatic, normocephalic, symmetric Eyes: EOMI, no lid lag, anicteric sclera Mouth: no lip lesion, mucus membranes moist Cardiovascular: S1S2 reg, no murmur, positive posterior tibial pulse bilateral, Lungs: CTA bilateral, no rhonchi, no rales , no accessory muscle use Abdominal: soft, tender to palpation in all 4 quadrants, no guarding, no appreciable organomegaly, some mild crepitus around surgical site Ext: no gross muscle atrophy, no edema, no contractures Neuro: CN II-XI grossly intact, no focal neuro deficits Psych: Alert, oriented, appropriate affect Acute gallstone pancreatitis s/p cholecystectomy -IV fluids -Pain medications -Nothing by mouth except ice chips -Surgery recommendations appreciated - toradol as needed for pain, dilaudid is likely to be ineffective however patient wants to continue to take this medication, add IV acetaminophen Constipation -MiraLAX Thrush -Nystatin swish and spit -HIV negative Hypoglycemia - start D5 0.45 as patient will be NPO. Suspect component of liver disease secondary to alcoholism -Outpatient follow-up Alcohol abuse -CIWA -Thiamine -Folic acid DVT prophylaxis: Lovenox Discussed with: Patient, nursing Anticipated discharge date: in 1-[address]: Return to [place] A total of 35 minutes was spent on the care of this complex patient more than 50% of the time was spent in counseling and care coordination. Objective - Vital Signs Vital signs: Vital Signs Temp 98.6 F 02/23/21 08:00 Pulse 81 02/23/21 08:00 Resp 18 02/23/21 08:00 BP 185/104 02/23/21 08:00 Pulse Ox 98 02/23/21 08:00 Intake & Output 02/22/21 02/23/21 02/23/21 18:59 06:59 18:59 Intake Total 1638 240 Output Total 505 400 Balance 1133 -400 240 Weight 58.967 kg Intake: IV 1200 Levofloxacin 500Mg-D5w 100 Pmx 500 mg In Dextrose/ Water 1 100ml.bag @ 100 mls/hr IVPB Q24HR@1500 [facility] Rx#:[id number] Oral 438 240 Output: Urine 500 400 Estimated Blood Loss 5 Other: Voiding Method Toilet Toilet Urinal # Voids 2 1 # Bowel Movements 0 - Labs CBC & Chem 7: 02/23/21 07:19 02/23/21 07:19 Labs: Abnormal Lab Results - Last 24 Hours (Table) 02/22/21 02/22/21 02/23/21 Range/Units 16:31 20:24 07:19 RBC 4.07 L (4.40-5.60) X 10*6/uL MCV 104.9 H (80.0-97.0) fL MCH 34.4 H (27.0-32.0) pg Plt Count 87 L (140-440) X 10*3/uL MPV 12.3 H (9.5-12.2) fL BUN (9.0-27.0) mg/dL BUN/Creatinine Ratio (12.00-20.00) Ratio POC Glucose (mg/dL) 164 H 127 H (75-99) mg/dL AST (14-35) U/L ALT (10-49) U/L Alkaline Phosphatase (41-126) U/L Albumin/Globulin Ratio (1.60-3.17) g/dL 02/23/21 Range/Units 07:19 RBC (4.40-5.60) X 10*6/uL MCV (80.0-97.0) fL MCH (27.0-32.0) pg Plt Count (140-440) X 10*3/uL MPV (9.5-12.2) fL BUN 2.7 L (9.0-27.0) mg/dL BUN/Creatinine Ratio 3.86 L (12.00-20.00) Ratio POC Glucose (mg/dL) (75-99) mg/dL AST 187 H (14-35) U/L ALT 84 H (10-49) U/L Alkaline Phosphatase 182 H (41-126) U/L Albumin/Globulin Ratio 1.52 L (1.60-3.17) g/dL
[2021-02-23 17:30] LABS: Glucose,Whole Blood 75 mg/dL (75-99)
[2021-02-23] MEDS: MIRTAZAPINE 15 MG TAB PO SCH (20:44)
[2021-02-23 20:45] LABS: Glucose,Whole Blood 122 mg/dL (75-99)
[2021-02-24] MEDS: HYDROmorphone 1 MG/ML 1 ML SYRINGE IVP PRN ×3 (04:08→11:35)
[2021-02-24] MEDS: ACETAMINOPHEN IV (For NPO) 1,000 MG in EMPTY BAG 1 BAG IVPB SCH (05:25)
[2021-02-24] MEDS: KETOROLAC 30 MG/ML 1 ML VIAL IVP SCH ×2 (05:25→12:15)
[2021-02-24 06:51] LABS: ALT 64 U/L (4-49); AST 94 U/L (17-59); African American GFR (CKD) >90 (>60 ml/min/1.73 sqM); Albumin 3.2 g/dL (3.5-5.0); Albumin/Globulin Ratio 1.1; Alkaline Phosphatase 121 U/L (38-126); Anion Gap 4 mmol/L; Blood Urea Nitrogen 3 mg/dL (9-20); Calcium 8.4 mg/dL (8.4-10.2); Carbon Dioxide 25 mmol/L (22-30); Chloride 104 mmol/L (98-107); Glucose 116 mg/dL (74-99); Non-African American GFR(CKD) >90 (>60 ml/min/1.73 sqM); Potassium 3.9 mmol/L (3.5-5.1); Sodium 133 mmol/L (137-145); Total Bilirubin 0.5 mg/dL (0.2-1.3); Total Protein 6.2 g/dL (6.3-8.2)
[2021-02-24] MEDS: metroNIDAZOLE-NS PMX 500 MG in SALINE 1 100ML.BAG IVPB SCH (07:50)
[2021-02-24 07:59] LABS: Glucose,Whole Blood 105 mg/dL (75-99)
[2021-02-24] MEDS: NICOTINE 21MG/24HR PATCH TRANSDERM SCH (09:04)
[2021-02-24] MEDS: ENOXAPARIN 40 MG/0.4 ML SYRINGE SQ SCH (09:04)
[2021-02-24] MEDS: PANTOPRAZOLE 40 MG/10 ML VIAL IV SCH (09:04)
[2021-02-24] MEDS: FAMOTIDINE 20 MG TAB PO SCH (09:04)
[2021-02-24] MEDS: THIAMINE 100 MG TAB PO SCH (09:04)
[2021-02-24] MEDS: lisinopriL 5 MG TAB PO SCH (09:05)
[2021-02-24] MEDS: NYSTATIN 100,000 UNIT/ML SUSP 500,000 UNIT/5 ML CUP PO SCH ×2 (09:05→13:33)
[2021-02-24] MEDS: PROPRANOLOL 10 MG TAB PO SCH (09:05)
[2021-02-24] MEDS: SIMETHICONE 40 MG/0.6 ML DROPS 2,000 MG/30 ML BOTTLE PO SCH ×2 (09:06→13:31)
[2021-02-24] MEDS ORDERED: lisinopriL 5 MG TAB PO STA (11:43)
[2021-02-24] MEDS ORDERED: lisinopriL 10 MG TAB PO STA (11:43)
[2021-02-24 12:41] LABS: Glucose,Whole Blood 90 mg/dL (75-99)
--- NOTE | 2021-02-24 13:51 | P.PN ---
Subjective Progress Note Date: 02/24/21 CHIEF COMPLAINT: Acute pancreatitis HISTORY OF PRESENT ILLNESS: The patient is a 30-year-old male admitted for acute pancreatitis. He is status post cholecystectomy. He had multiple bowel movements yesterday. He is tolerating low fat diet. He reports appropriate incisional pain. ROS: No fevers or chills. No shortness of breath PHYSICAL EXAM: VITAL SIGNS: Reviewed CONSTITUTIONAL: Well developed and in no acute distress. EYES: Conjuctivae without sclera icterus. Extraocular movements grossly intact. HEAD, EARS, NOSE, THROAT: Moist buccal mucosa. Head is atraumatic, normocephalic. Hears conversational speech. No nasal drainage. NECK: Supple. No thyroidomegaly. RESPIRATORY: Non-labored respirations and equal bilateral excursions. CARDIOVASCULAR: Palpable 2+ radial pulses. ABDOMEN: Incisions intact. No peritonitis. MUSCULOSKELETAL: No gross deformity of the lower extremities noted. No clubbing. No cyanosis. No tremors. SKIN: Good skin turgor. Well perfused. NEUROLOGIC: Cranial nerves II through XII grossly intact. No focal or lateralizing signs. PSYCH: Appropriate affect. Alert and oriented to person, place and time. LABS: Reviewed. LFTS elevated but trending down. ASSESSMENT: 1. Gallstones pancreatitis. 2. History of alcoholism PLAN: 1. Diet as tolerated 2. Continue pain management 3. Stable for discharge from a surgical standpoint when medically stable Objective - Vital Signs Vital signs: Vital Signs Temp 98.4 F 02/24/21 08:00 Pulse 75 02/24/21 08:00 Resp 18 02/24/21 08:00 BP 181/104 02/24/21 11:42 Pulse Ox 99 02/24/21 08:00 Intake & Output 02/23/21 02/24/21 02/24/21 18:59 06:59 18:59 Intake Total 240 Balance 240 Intake: Oral 240 Other: Voiding Method Toilet Toilet Urinal Urinal # Voids 1 - Labs CBC & Chem 7: 02/23/21 07:19 02/24/21 06:23 Labs: Abnormal Lab Results - Last 24 Hours (Table) 02/23/21 02/23/21 02/24/21 Range/Units 07:19 20:43 06:23 Sodium 133 L (137-145) mmol/L BUN 3 L (9-20) mg/dL Creatinine 0.58 L (0.66-1.25) mg/dL Glucose 116 H (74-99) mg/dL POC Glucose (mg/dL) 122 H (75-99) mg/dL AST 94 H (17-59) U/L ALT 64 H (4-49) U/L Total Protein 6.2 L (6.3-8.2) g/dL Albumin 3.2 L (3.5-5.0) g/dL Lipase 67 H (14-60) U/L 02/24/21 Range/Units 07:58 Sodium (137-145) mmol/L BUN (9-20) mg/dL Creatinine (0.66-1.25) mg/dL Glucose (74-99) mg/dL POC Glucose (mg/dL) 105 H (75-99) mg/dL AST (17-59) U/L ALT (4-49) U/L Total Protein (6.3-8.2) g/dL Albumin (3.5-5.0) g/dL Lipase (14-60) U/L Assessment and Plan (1) Gallstone pancreatitis Current Visit: Yes Status: Acute Code(s): K85.10 - BILIARY ACUTE PANCREATITIS WITHOUT NECROSIS OR INFECTION SNOMED Code(s): 52286056 (2) Acute pancreatitis Current Visit: Yes Status: Acute Code(s): K85.90 - ACUTE PANCREATITIS WITHOUT NECROSIS OR INFECTION, UNSP SNOMED Code(s): 810779208
[2021-02-24 14:34] VITALS: BP 167/99; PULSE 72; TEMP 98.7
[2021-02-24] MEDS ORDERED: IBUPROFEN 600 MG TAB PO STA (15:12)
--- NOTE | 2021-02-24 15:26 | P.DS ---
Providers Date of admission: 02/21/21 06:57 Expected date of discharge: 02/24/21 Attending physician: Gigi Jennings MD Consults: 02/21/21 06:56 Consult Physician Routine Consulting Provider: Magdalena Horan Consult Reason/Comments: pacnreatitis Do you want consulting provider notified?: Yes 02/21/21 13:04 Consult Physician Routine Consulting Provider: [facility] Consult Reason/Comments: [facility] Do you want consulting provider notified?: Yes Primary care physician: Stated None Hospital Course: Discharge Diagnosis: Gallstone Pancreatitis ETOH withdrawal HTN urgency Constipation Hypoglycemia, resolved Thrush Transaminitis with liver disease Alcohol Abuse Hospital Course: Patient is a 30 yo CM with a hx of pancreatitis, gallstones, prior heroin use and alcohol abuse who prestented to the hospital from [place] for abdominal pain. On arrival to the ER he was hypertensive with blood pressure 168/117. Laboratory analysis showed an elevated lipase. Normal bilirubin, AST, and ALT. He underwent CT abd and pelvis which showed acute pancreatitis with prominence of the pancreas, mild fat stranding, underlying hepatocellular disease with moderate extra hepatic biliary dilatation. He also underwent liver ultrasound which again showed diffuse fatty infiltration with minimal pancreatic duct dilatation and moderate extrahepatic duct dilatation, no obvious obstructing ampullary lesions, internal gallbladder sludge without evidence of acute cholecystitis. He was started on IV fluids and arrangements were made for admission. Surgery was consulted. They recommended cholecystectomy which was performed on 02/22. He did have some hypoglycemia which responded to glucose administration. He did not have any additional episode of hypoglycemia and was tolerating a low fat diet. He was determined stable for discharge home. Patient seen and examined at bedside. Tolerating his diet, pain is better, has been up and moving. Vital signs reviewed and stable. General: non toxic, no distress, appears at stated age Derm: warm, dry, incusion with small amount of bruising but C/D/without erythema Head: atraumatic, normocephalic, symmetric Eyes: EOMI, no lid lag, anicteric sclera Mouth: no lip lesion, mucus membranes moist Cardiovascular: S1S2 reg, no murmur, positive posterior tibial pulse bilateral, Lungs: CTA bilateral, no rhonchi, no rales , no accessory muscle use Abdominal: soft, +tender to palpation near incision sites., no guarding, no appreciable organomegaly Ext: no gross muscle atrophy, no edema, no contractures Neuro: CN II-XI grossly intact, no focal neuro deficits Psych: Alert, oriented, appropriate affect A total of 35 minutes of time were spent preparing this complex discharge summary . Patient Condition at Discharge: Stable Plan - Discharge Summary Discharge Rx Participant: Yes New Discharge Prescriptions: New Ibuprofen [Motrin] 600 mg PO Q8HR PRN #30 tab PRN Reason: Pain Nystatin 100,000 Unit/ml Susp [Mycostatin Oral Susp] 500,000 unit PO QID 8 Days #160 ml lisinopriL [Zestril] 20 mg PO DAILY #30 tab Continue Acetaminophen Tab [Tylenol] 650 mg PO Q4H PRN PRN Reason: Pain Pantoprazole [Protonix] 40 mg PO BID Mirtazapine [Remeron] 30 mg PO HS Changed Propranolol [Inderal] 10 mg PO BID #0 Discontinued LORazepam [Ativan] 1 - 2 mg PO Q4H PRN PRN Reason: Agitation lisinopriL [Zestril] 5 mg PO DAILY Discharge Medication List Acetaminophen Tab [Tylenol] 650 mg PO Q4H PRN 02/21/21 [History] Mirtazapine [Remeron] 30 mg PO HS 02/21/21 [History] Pantoprazole [Protonix] 40 mg PO BID 02/21/21 [History] Ibuprofen [Motrin] 600 mg PO Q8HR PRN #30 tab 02/24/21 [Rx] Nystatin 100,000 Unit/ml Susp [Mycostatin Oral Susp] 500,000 unit PO QID 8 Days #160 ml 02/24/21 [Rx] Propranolol [Inderal] 10 mg PO BID #0 02/24/21 [Rx] lisinopriL [Zestril] 20 mg PO DAILY #30 tab 02/24/21 [Rx] Follow up Appointment(s)/Referral(s): Magdalena Horan MD [STAFF PHYSICIAN] - 03/07/21 None,Stated [Primary Care Provider] - 1-2 days Patient Instructions/Handouts: How to Stop Smoking (DC), Pancreatitis (DC), Laparoscopic Cholecystectomy (GEN) Activity/Diet/Wound Care/Special Instructions: Activity: as tolerated Diet: low fat Discharge Disposition: HOME SELF-CARE
[2021-02-25] MEDS ORDERED: lisinopriL 20 MG TAB PO SCH (09:00)
== END 2021-02-24 16:00 | disposition home or self-care (01) | DRG 417 ==
LOC: EC 04:58 → 6NMEDSUR 06:57
PROVIDERS: ADMIT Internal Medicine; ATTEND Internal Medicine
PROC: 8E0W4CZ Robotic Assisted Procedure of Trunk Region, Percutaneous Endoscopic Approach (ICD-10-PCS; principal; 2021-02-22 09:30)
PROC: 0FT44ZZ Resection of Gallbladder, Percutaneous Endoscopic Approach (ICD-10-PCS; principal; 2021-02-22 09:30)
DX: K81.1 Chronic cholecystitis (principal); K85.10 Biliary acute pancreatitis without necrosis or infection; F10.239 Alcohol dependence with withdrawal, unspecified; B37.0 Candidal stomatitis; F10.20 Alcohol dependence, uncomplicated; Z20.822 Contact with and (suspected) exposure to COVID-19; I16.0 Hypertensive urgency; K59.00 Constipation, unspecified; E16.2 Hypoglycemia, unspecified; F11.90 Opioid use, unspecified, uncomplicated; F17.200 Nicotine dependence, unspecified, uncomplicated; F31.9 Bipolar disorder, unspecified; F43.10 Post-traumatic stress disorder, unspecified; F90.9 Attention-deficit hyperactivity disorder, unspecified type; I10 Essential (primary) hypertension; K76.0 Fatty (change of) liver, not elsewhere classified; Z79.899 Other long term (current) drug therapy; Z82.49 Family history of ischemic heart disease and other diseases of the circulatory system
CPT/HCPCS: 36415; 74022; 74177; 76705; 80053; 80320; 82150; 83690; 83735; 84100; 85025; 85027; 87390; 87635; 88304; 96361; 96374; 96375; 99285